=== PATIENT | male | born 1980 | race African-American/Black ===

== ENCOUNTER 2018-09-18 08:32 | Emergency (ER) | payer OTHER ==
[~2018-09-18] VITALS: Ht 172.7 cm; Wt 65.8 kg
[~2018-09-18 08:32] MED LIST: CLINDAMYCIN HC150 MG PO; CYCLOBENZAPRINE5 MG PO; DARVOCET-N 1001 EACH PO; FENTANYL PA50 MCG/HR TP; FLONASE 0.05%50 MCG NS; HYDROCHLOROTHIA25 M1 PO; LISINOPRIL10 MG PO; MIRALAX255 GM PO; NAPROSYN500 MG PO; NEURONTIN800 MG PO; NOHOMEMEDICATIONS; NORCO 5-325 TA1 EACH PO; NORCO 7.5-3251 EACH PO; NORFLEX100 MG PO; REGLAN 10 MG TA10 MG PO; SUDAFED 12 HR120 MG PO; TESSALON PERLE100 MG PO; ULTRAM 50MG TAB50 MG PO; ZOFRAN ODT4 MG PO
[2018-09-18 10:13] VITALS: BP 112/64
[2018-09-18] MEDS ORDERED: NORCO 5-325 TA1 EACH PO (10:22)
[2018-09-18] MEDS ORDERED: CYCLOBENZAPRINE5 MG PO (10:22)
== END 2018-09-18 10:00 | disposition home or self-care (01) ==
LOC: ER 08:32
DX: M54.12 Radiculopathy, cervical region (principal); R51 Headache; M25.511 Pain in right shoulder; F17.210 Nicotine dependence, cigarettes, uncomplicated; J45.909 Unspecified asthma, uncomplicated; Z91.013 Allergy to seafood; Z88.0 Allergy status to penicillin; Z85.118 Personal history of other malignant neoplasm of bronchus and lung

== ENCOUNTER 2019-08-21 17:18 | Emergency (ER) | payer OTHER ==
[~2019-08-21] VITALS: Ht 170.2 cm; Wt 65.8 kg
[2019-08-21 19:17] VITALS: BP 121/64
== END 2019-08-21 19:12 | disposition home or self-care (01) ==
LOC: ER 17:18
DX: J06.9 Acute upper respiratory infection, unspecified (principal); J45.909 Unspecified asthma, uncomplicated; Z85.118 Personal history of other malignant neoplasm of bronchus and lung; F17.290 Nicotine dependence, other tobacco product, uncomplicated; Z88.0 Allergy status to penicillin; Z91.013 Allergy to seafood

== ENCOUNTER 2020-03-03 23:34 | Emergency (ER) | payer BC, OTHER ==
[~2020-03-03] VITALS: Ht 172.7 cm; Wt 63.5 kg
[2020-03-03 23:42] VITALS: BP 129/78
== END 2020-03-04 00:31 | disposition home or self-care (01) ==
LOC: ER 23:34
DX: R19.7 Diarrhea, unspecified (principal); J45.909 Unspecified asthma, uncomplicated; F17.210 Nicotine dependence, cigarettes, uncomplicated; Z88.0 Allergy status to penicillin; Z91.013 Allergy to seafood; Z85.118 Personal history of other malignant neoplasm of bronchus and lung